=== PATIENT | female | born 1940 | race Caucasian/White ===

== ENCOUNTER 2019-10-14 00:04 | Outpatient (CLI) | payer SELFPAY | END 2019-10-14 00:05 | disposition EMS.NT | LOC: EMS 00:04 | PROVIDERS: ATTEND Surgery | DX: R51 Headache (principal); R20.2 Paresthesia of skin ==

== ENCOUNTER 2019-11-27 21:40 | Outpatient (CLI) | payer MEDICARE | END 2019-11-27 21:41 | disposition short-term general hospital (02) | LOC: EMS 21:40 | PROVIDERS: ATTEND Surgery | DX: R26.81 Unsteadiness on feet (principal); W19.XXXA Unspecified fall, initial encounter; Y93.01 Activity, walking, marching and hiking; Y92.009 Unspecified place in unspecified non-institutional (private) residence as the place of occurrence of the external cause | CPT/HCPCS: A0425; A0429 ==

== ENCOUNTER 2021-01-02 21:05 | Outpatient (CLI) | payer MEDICARE | END 2021-01-02 21:06 | disposition short-term general hospital (02) | LOC: EMS 21:05 | DX: R55 Syncope and collapse (principal); R53.1 Weakness; R19.7 Diarrhea, unspecified | CPT/HCPCS: A0425; A0429 ==

== ENCOUNTER 2021-10-04 10:02 | Outpatient (CLI) | payer MEDICARE | END 2021-10-04 23:59 | disposition short-term general hospital (02) | LOC: EMS 10:02 | DX: L98.9 Disorder of the skin and subcutaneous tissue, unspecified (principal); M53.3 Sacrococcygeal disorders, not elsewhere classified | CPT/HCPCS: A0425; A0429 ==